=== PATIENT | male | born 1955 | race Caucasian/White ===

== ENCOUNTER 2025-06-02 00:22 | Day surgery (SDC) | payer MEDICARE, SELFPAY ==
[2025-05-26 09:56] VITALS: BMI 33.9
--- NOTE | 2025-05-26 10:09 | PC.NURSE ---
Report to the Outpatient Waiting Room, entrance under the green pavilion located off [facility], at time _10:00am on date __06/02/25 . Planned Procedure Time: __12:00pm .? Time changes happen often and if your time is changed the preop area will call you the afternoon before. - You and your visitor will be asked to self-screen and do not enter if you have any COVID symptoms. Please call surgeon if you need to reschedule. - A mask is optional within the hospital at this time. Patients may have clear liquids (water, carbonated beverages, clear teas, apple juice) until 3 hours prior to surgery with a maximum of 20 ounces. - No food from midnight until time of surgery and no smoking, or chewing tobacco (or any form of nicotine). No chewing gum, candy or mints. (09:00am) Take only the following medications with a SIP of water on the morning of surgery: ____Metoprolol and Amlodipine DO NOT STOP ANY OF YOUR OTHER PRESCRIPTION MEDICATIONS PRIOR TO SURGERY EXCEPT THE FOLLOWING Hold all vitamins and supplements for 3 days per anesthesiologist. Date of last dose is 05/29/25 Medications to discontinue per physician NONE Date to take last dose NONE Please no make-up, nail serbian, hairspray, perfume, deodorant, or body powder the day of surgery.? No jewelry (including any body piercings) or valuables the day of surgery, leave them at home.? Please take a shower or bath the night before, or the morning of, surgery with an antibacterial soap.? Wear comfortable, loose fitting clothing.? - Jewelry must be removed prior to entering the operating room.? Rings and piercings that are not removed may be cut off. - The hospital will not accept responsibility for valuables.? - Please leave all valuables, including medications, at home the day of surgery. If you are going home after surgery, a licensed driver material handler must drive you home.? - NO public transportation without another adult if you receive anesthesia. - We recommend that an adult stay with you for 24 hours following discharge. - We also recommend that you do not drive, make important decision, drink alcoholic beverages, or take any drugs that were not prescribed by your health care provider for at least 24 hours after your discharge time. Follow any additional instructions given to you from your surgeon. Telephone instructions given to ___Patient and asked if any additional questions and then verbalized understanding. Patient advised to call surgeon office or pre surgery nurse liaison [phone] if any additional questions.
[2025-06-02] VITALS (9 sets, daily range): BP systolic 90–142; BP diastolic 53–86; PULSE 75–89; RESP 14–23; TEMP 36.2–36.6; O2SAT 94–100
--- NOTE | ~2025-06-02 | XR_ITS ---
EXAMINATION: XR surgery orthopedic DATE: 06/02/2025 13:53 INDICATION: Right foot surgery TECHNIQUE: Single dorsal plantar fluoroscopic image of the right forefoot was obtained during procedure performed by Dr. Mccullough. Radiologist was not present for the imaging or procedure. The amount of fluoroscopy time used during this procedure was 0.1 minutes. Total DAP was 0.4065 cGycm^2. COMPARISON: None. FINDINGS: Changes consistent with a right bunionectomy with osteotomy at medial head of the right first metatarsal with a few small foci of lucent likely postoperative gas. Suggestion of an additional osteotomy at the medial base of the first proximal phalanx. Additional osteotomy along the head of the second proximal phalanx and base of the second middle phalanx with additional lucent soft tissue gas at the operative bed. There is a fixation pin which projects across the heads of the second-fifth metatarsals. IMPRESSION: 1. Fluoroscopy utilized during orthopedic procedure at the right forefoot. See procedure note for further detail. Reviewed, dictated and finalized at location A.
--- NOTE | ~2025-06-02 | XR_ITS ---
EXAMINATION: XR foot RT 2V DATE: 06/02/2025 15:22 INDICATION: Right foot surgery TECHNIQUE: 2 images of the right foot were obtained COMPARISON: None. FINDINGS: Orthopedic screw in the head of the second metatarsal which appears to be transfixing a fracture without radiographic evidence for loosening of the hardware. The distal third of the proximal phalanx of the second toe is absent. Bony irregularity of the distal aspect of the proximal phalanx of the second toe. Small plantar calcaneal spur. Soft tissue swelling about the right foot. IMPRESSION: 1. Orthopedic screw in the head of the second metatarsal which appears to be transfixing a fracture without radiographic evidence for loosening of the hardware. 2.The distal third of the proximal phalanx of the second toe is absent. Bony irregularity of the distal aspect of the proximal phalanx of the second toe. The findings may be secondary to recent surgery, however, osteomyelitis is possible. If concern for osteomyelitis, consider an MRI with and without contrast for further assessment. 3. Soft tissue swelling about the right foot. Reviewed, dictated and finalized at location Q. IMPRESSION: 1. Orthopedic screw in the head of the second metatarsal which appears to be tr ansfixing a fracture without radiographic evidence for loosening of the hardwar e. 2.The distal third of the proximal phalanx of the second toe is absent. Bony ir regularity of the distal aspect of the proximal phalanx of the second toe. The findings may be secondary to recent surgery, however, osteomyelitis is possible . If concern for osteomyelitis, consider an MRI with and without contrast for f urther assessment. 3. Soft tissue swelling about the right foot.
--- OUTSIDE RECORDS SUMMARY | 2025-06-02 00:25 | XMS_ITS | Encounter Summary ---
Author Organization [facility] Address [address] [place] [address] Phone Care Team Providers Care Product Design Engineer Name Role Phone Cesar Ayala MD Primary Care Provider [phone] Zhang Rock MD Unavailable [phone] Encounter Details Date Type Department Care Team (Latest Contact Info) Description 02/26/2023 Orders Only [facility] Scanning, Provider Social History Tobacco Use Types Packs/Day Years Used Date Smoking Tobacco: Never Smokeless Tobacco: Never AUDIT-C Answer Date Recorded Q1: How often do you have a drink containing alc ohol? Monthly or less 07/20/2021 Q2: How many drinks containi ng alcohol do you have on a typical day when you are drinking? 1 or 2 07/20/2021 Frequency of Binge Drinking Not on file 06/23 PHQ-2 Answer Date Recorded PHQ-2 Total Score 1 02/13/2022 Sex and Gender Information Value Date Recorded Sex Assigned at Not on file Legal Sex Male 1:38 PM METAL SLITTER Gender Identity Male 09/25/2021 1:41 PM METAL SLITTER Sexual Orientation Straight 09/25/2021 1: 41 PM METAL SLITTER documented as of this encounter Plan of Treatment Not on file documented as of this encounter Procedures Procedure Name Priority Date/Time Associated Diagnosis Comments SCAN - LABS 02/26/2023 documented in this encounter Results * SCAN - LABS (02/26/2023) us Provider Scanning Final Result documented in this encounter Visit Diagnoses Not on filedocumented in this encounter Care Teams Product Design Engineer Relationship Specialty Start Date End Date Cesar Ayala MD [address] [facility] [address] [place] [address] PCP - General 11/12/16 Zhang Rock MD [address] [place] [address] Consulting Physician Rheumatology 10/30/21 documented as of this encounter
--- OUTSIDE RECORDS SUMMARY | 2025-06-02 00:25 | XMS_ITS | Clinical Summary ---
Author Organization [facility] Address [address] [place] [address] Care Team Providers Care Insulation Machine Operator Name Role Phone Cesar Ayala MD Primary Care Provider [phone] Allergies Active Allergy Reactions Criticality Noted Date Comments Ibuprofen Other (see comment) 05/12/2019 cramps Medications hydrocodone-ac etaminophen (NORCO) 5-325 MG tablet Take 1-2 tablets by mouth every 6 (six) hours as needed for Pain. 16 tablet 9 Active acetaminophen (TYLENOL) 500 MG tablet every 8 (eight) hours. Active baclofen 10 MG tablet Take 10 mg by mouth 3 (three) times daily as needed. 1 Active vitamin B-12 (CYANOCOBALAMI N) 1000 mcg tablet Take 1,000 mcg by mouth. Active dexlansoprazol e (DEXILANT) 60 MG capsule 4 Active Krill Oil 300 MG Cap Active latanoprost 0.005 % ophthalmic solution 3 Active lisinopril 10 MG tablet Take 1 tablet by mouth daily. 3 Active losartan 25 MG tablet losartan 25 mg tablet TAKE 1 TABLET BY MOUTH EVERY DAY 0 Active meloxicam 15 MG tablet TAKE 1 TABLET BY MOUTH EVERY DAY WITH MEALS 1 Active metoprolol succinate ER 100 MG 24 hr tablet metoprolol succinate ER 100 mg tablet,extended release 24 hr TAKE 1 TABLET BY MOUTH EVERY DAY IN THE MORNING Active nitroglycerin 0.4 MG SL tablet nitroglycerin 0.4 mg sublingual tablet Active [place]-3 Fatty Acids (FISH OIL PEARLS) 300 MG Cap TAKE DIRECTED. A ctive traMADol 50 MG tablet tramadol 50 mg tablet Active Immunizations Immunization Administration Dates Next Due PFIZER COVID-19 (ORIGINAL FO RMULATION, PURPLE CAP) mRNA, LNP-S, PF, 30 MCG/0.3 ML DOSE 11/20/2020,10/30/2020 Social History Tobacco Use Types Packs/Day Years Used Date Smoking Tobacco: Never Smokeless Tobacco: Never Alcohol Use Standard Drinks/Week Comments Yes 0 (1 standard drink = 0.6 oz pur e alcohol) socially AUDIT-C Answer Date Recorded Frequency of Alcohol Consumption Never 05/12/2019 Average Number of Drinks Not on file 019 Frequency of Binge Drinking Not on file 04/23 Sex and Gender Information Value Date Recorded Sex Assigned at Not on file Legal Sex Male 5:46 PM CDT Gender Identity Not on file Sexual Orientation Not on file Last Filed Vital Signs Vital Sign Reading Time Taken Comments Blood Pressure 148/85 12/21/2020 10:21 AM CDT Pulse 75 12/21/2020 10:21 AM CDT Temperature 36.3 C (97.3 F) 12/21/2020 10:21 AM CDT Respiratory Rate 18 12/21/2020 10:21 AM CDT Oxygen Saturation 97% 12/21/2020 10:21 AM CDT Inhaled Oxygen Concentration - - Weight 111.1 kg (245 lb) 12/21/2020 10:21 AM CDT Height 182.9 cm (6') 12/21/2020 10:21 AM CDT Body Mass Index 33.23 12/21/2020 10:21 AM CDT Plan of Treatment Health Maintenance Due Date Last Done Comments Colorectal Cancer Screening Colonoscopy (10 Years) 1955 Hepatitis C 1973 Zoster Vaccines (1 of 2) 2005 Pneumococcal Vaccine: 50+ Years (2 of 2 - PCV) 07/06/2016 07/06/2015 Annual Medicare Wellness Visit 2020 COVID-19 Vaccine (3 - season) 2025 11/20/2020, 10/30/2020 DTaP, Tdap and Td Vaccines (5 - Td or Tdap) 11/20/2028 11/20/2018, 04/09/2018, 12/22/2015, Additional history exists RSV Immunization or 60+ Years (1 - 1-dose 75+ series) 2030 Meningococcal B Vaccine Aged Out No l onger eligible based on patient's age to complete this topic Meningococcal Vaccine Aged Out No cele starr eligible based on patient's age to complete this topic RSV Immunizations Under 20 Months Aged Out No longer eligible based on patient's age to complete this topic Insurance GENERIC - COMMERCIAL MEDICARE [facility] Care Teams Insulation Machine Operator Relationship Specialty Start Date End Date Cesar Ayala MD PCP - General INTERNAL MEDICINE 03/16/18
--- OUTSIDE RECORDS SUMMARY | 2025-06-02 00:25 | XMS_ITS | Clinical Summary ---
Author Organization [facility] Care Team Providers Care Clock Mechanic Name Role Phone Unavailable Primary Care Provider Unavailabl e Social History Tobacco Use Types Packs/Day Years Used Date Smoking Tobacco: Never Assessed Sex and Gender Information Value Date Recorded Sex Assigned at Not on file Legal Sex Male 7:54 AM SOA INTEGRATION ARCHITECT Gender Identity Not on file Sexual Orientation Not on file Plan of Treatment Health Maintenance Due Date Last Done Comments Hepatitis C Virus (HCV) Screening 1955 Cologuard 2000 Colonoscopy 2000 Colorectal Cancer Screening 2000 Immunochemical Fecal Occult Blood 2000 Zoster Immunization (1 of 2) 2005 Pneumococcal Immunization (50+ years) (2 of 2 - PCV20 or PCV21) 04/02/2022 04/02/2021 SARS-COV-2 Immunization ( - season) 2024 08/28/2021, 11/20/2020, 10/30/2020 Influenza Immunization (#1) 2025 092 , 07/17/2020, 07/20/2016, Additional history exists Respiratory Syncytial Virus (RSV) Immunization (Adult) (1 - 1-dose 75+ series) 2030 DTaP/Tdap/Td Immunization Discontinued 11/20/2018 TdaP Immunization Completed 11/20/2018 Hepatitis B Immunization Aged Out No longer eligible based on patient's age to complete this topic Human Papillomavirus (HPV) Immunization Aged Out No longer eligible based on patient's age to complete this topic Meningococcal Immunization (ACWY) Aged Out No longer eligible based on patient's age to complete this topic Rotavirus Immunization Aged Out No lo nger eligible based on patient's age to complete this topic
--- OUTSIDE RECORDS SUMMARY | 2025-06-02 00:25 | XMS_ITS | Encounter Summary ---
Author Organization [facility] Address [address] [place] [address] Phone Care Team Providers Care Organizational Consultant Name Role Phone Cesar Ayala MD Primary Care Provider [phone] Zhang oRck MD Unavailable [phone] Encounter Details Date Type Department Care Team (Late st Contact Info) Description 05/26/2025 Telephone [facility] Medicine Cardiology [address] [facility] [address] 8th [place] [address] [place] [address] Viraj Mathew MD [address] [facility] [address] [place] [address] Social History Tobacco Use Types Packs/Day Years Used Date Smoking Tobacco: Never Smokeless Tobacco: Never AUDIT-C Answer Date Recorded Q1: How often do you have a drink containing alc ohol? Monthly or less 03/16/2025 Q2: How many drinks containi ng alcohol do you have on a typical day when you are drinking? 1 or 2 03/16/2025 Q3: How often do you have si x or more drinks on one occasion? Never 03/16/2025 PHQ-2 Answer Date Recorded PHQ-2 Total Score 1 02/13/2022 Personal Safety Answer Date Recorded Have you ever been in or are you currently in a harmful physical or emotional relationship or is someone making you feel afraid or unsafe? Denies 03/16/2025 Sex and Gender Information Value Date Recorded Sex Assigned at Not on file Legal Sex Male 1:38 PM APPLICATIONS SPECIALIST Gender Identity Male 09/25/2021 1:41 PM APPLICATIONS SPECIALIST Sexual Orientation Straight 09/25/2021 1: 41 PM APPLICATIONS SPECIALIST documented as of this encounter Miscellaneous Notes * Telephone Encounter - Ibarra Carissa - 05/26/2025 1:00 PM CDT EKG has been faxed * Telephone Encounter - Rosalee Guillen - 05/26/2025 12:53 PM CDT Please fax EKG to [phone]. * Telephone Encounter - Carissa Ibarra - 05/26/2025 10:32 AM CDT Notes and EKG has been faxed to [facility] at [phone] * Telephone Encounter - Rosalee Guillen - 05/26/2025 9:46 AM CDT [facility] called requesting office note and EKG to be faxed to [phone]. documented in this encounter Plan of Treatment Not on file documented as of this encounter Visit Diagnoses Not on filedocumented in this encounter Care Teams Organizational Consultant Relationship Specialty Start Date End Date Cesar Ayala MD [address] [facility] [address] [place] [address] PCP - General 11/12/16 Zhang Rock MD [address] [place] [address] Consulting Physician Rheumatology 10/30/21 documented as of this encounter
--- OUTSIDE RECORDS SUMMARY | 2025-06-02 00:25 | XMS_ITS | Encounter Summary ---
Author Organization [facility] Address [address] [facility] [address] [place] [address] Phone Care Team Providers Care Boiler Tender Name Role Phone Cesar Ayala MD Primary Care Provider [phone] Zhang Rock MD Unavailable [phone] Encounter Details Date Type Department Care Team (Late st Contact Info) Description 05/06/2025 Results Follow-Up [facility] ([facility]) [facility] Medicine Urology [address] [facility] Advanced Medicine 11th [place] [address] [place] [address] Compa Paniagua, TISHA [address] [facility] [place] [address] Total testosterone Social History Tobacco Use Types Packs/Day Years [...] on file Legal Sex Male 1:38 PM MATERIALS SUPERVISOR Gender Identity Male 09/25/2021 1:41 PM MATERIALS SUPERVISOR Sexual Orientation Straight 09/25/2021 1: 41 PM MATERIALS SUPERVISOR documented as of this encounter Plan of Treatment Not on file documented as of this encounter Visit Diagnoses Not on filedocumented in this encounter Care Teams Boiler Tender Relationship Specialty Start Date End Date Cesar Ayala MD [address] [facility] [address] [place] [address] PCP - General 11/12/16 Zhang Rock MD [address] [place] [address] Consulting Physician Rheumatology 10/30/21 documented as of this encounter
--- OUTSIDE RECORDS SUMMARY | 2025-06-02 00:25 | XMS_ITS | Encounter Summary ---
Author Organization [facility] Address [address] [place] [address] Care Team Providers Care Proof Operator Name Role Phone Cesar Ayala MD Primary Care Provider [phone] Zhang Rock MD Unavailable [phone] Encounter Details Date Type Department Care Team (Late st Contact Info) Description 11/06/2021 Documentation [facility] OP Physical Therapy [address] [place] [address] Osbaldo Agustin, PT Social History Tobacco Use Types Packs/Day Years [...] PHQ-2 Answer Date Recorded PHQ-2 Total Score (If total score is 3 or more points, staff should administer the PHQ-9) 2 10/17/2021 Sex and Gender Information Value Date Recorded Sex Assigned at Not on file Legal Sex Male 1:38 PM FOSTER CARE CASE MANAGER Gender Identity Male 09/25/2021 1:41 PM FOSTER CARE CASE MANAGER Sexual Orientation Straight 09/25/2021 1: 41 PM FOSTER CARE CASE MANAGER documented as of this encounter Plan of Treatment Not on file documented as of this encounter Visit Diagnoses Not on filedocumented in this encounter Care Teams Proof Operator Relationship Specialty Start Date End Date Cesar Ayala MD [address] [facility] [address] [place] [address] PCP - General 11/12/16 Zhang Rock MD [address] [place] [address] Consulting Physician Rheumatology 10/30/21 documented as of this encounter
--- OUTSIDE RECORDS SUMMARY | 2025-06-02 00:25 | XMS_ITS | Encounter Summary ---
Author Organization [facility] Address [address] [place] [address] Phone Care Team Providers Care Housing Project Manager Name Role Phone Cesar Ayala MD Primary Care Provider [phone] Zhang Rock MD Unavailable [phone] Encounter Details Date Type Department Care Team (Late st Contact Info) Description 05/02/[address] [facility] Medicine Cardiology [address] [facility] [address] [place] [address] Viraj Mathew MD [address] [facility] [address] [place] [address] Social History Tobacco Use Types Packs/Day Years [...] on file Legal Sex Male 1:38 PM REGISTER CLERK Gender Identity Male 09/25/2021 1:41 PM REGISTER CLERK Sexual Orientation Straight 09/25/2021 1: 41 PM REGISTER CLERK documented as of this encounter Plan of Treatment Not on file documented as of this encounter Visit Diagnoses Not on filedocumented in this encounter Care Teams Housing Project Manager Relationship Specialty Start Date End Date Cesar Ayala MD [address] [facility] [address] [place] [address] PCP - General 11/12/16 Zhang Rock MD [address] [place] [address] Consulting Physician Rheumatology 10/30/21 documented as of this encounter
--- OUTSIDE RECORDS SUMMARY | 2025-06-02 00:25 | XMS_ITS | Encounter Summary ---
Author Organization [facility] Address [address] [place] [address] Care Team Providers Care Assistant Merchandiser Name Role Phone Cesar Ayala MD Primary Care Provider [phone] Nell Ge MD Unavailable Encounter Details Date Type Department Care Team (Late st Contact Info) Description 04/09/2018 Ophth Exam [facility] [address] [place] [address] Janeen Gonzalez MD [address] [place] [address] Social History Tobacco Use Types Packs/Day Years Used Date Smoking Tobacco: Never Smokeless Tobacco: Never Alcohol Use Standard Drinks/Week Comments Yes 0 (1 standard drink = 0.6 oz pur e alcohol) occasionally Sex and Gender Information Value Date Recorded Sex Assigned at Not on file Legal Sex Male 6:03 PM SPRING LAYER Gender Identity Not on file Sexual Orientation Not on file documented as of this encounter Plan of Treatment Not on file documented as of this encounter Visit Diagnoses Not on filedocumented in this encounter Care Teams Assistant Merchandiser Relationship Specialty Start Date End Date Cesar Ayala MD [address] [facility] [address] [place] [address] PCP - General Internal Medicine 04/09/18 Nell Ge MD [address] [facility] [address] [place] [address] Ophthalmology 04/26/19 documented as of this encounter
--- OUTSIDE RECORDS SUMMARY | 2025-06-02 00:25 | XMS_ITS | Clinical Summary ---
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 Large plantar calcaneal spur. US right hand/wrist (11/21/21): Moderate effusions and power doppler with erosive changes on examination. Marked synovial thickening in the wrist and 2nd PIP joint. Moderate synovial thickening in the 3rd MCP and 3rd PIP joints. Erosive changes seen in the lunate. Grade 2 effusion and grade 2 power doppler in the wrist. Grade 1 effusion and grade 2 power doppler in the radial/scaphoid joint. Grade 2 power doppler in the scapholunate joint and ulnar styloid. Grade 2 effusion in the 2nd and 3rd PIP joints. Grade 1 power doppler in the 2nd MCP joint. US right foot/ankle (07/21/24): 1) Tibial talar joint: Grade 1 effusion and grade 1 power doppler. 2) Talonavicular joint: Grade 1 effusion. 3) 1st MTP joint: Marked spurring. 4) 2nd MTP joint: Grade 2 effusion and grade 1 power doppler. 5) Dorsal 2nd PIP joint: Grade 1 power doppler with moderate spurring. 6) Volar 2nd PIP joint: Grade 1 power doppler. 7) Dorsal and Volar 2nd DIP joint was without effusion, power doppler, or erosive changes. 8) 5th MTP joint: Small cortical defect in the metatarsal head which may represent erosive changes. 9) An enlarged plantar fascia at 0.61 cm is identified. Assessment & Plan (04/18/2025 12:51 PM CDT): High cdai. Increased joint pain since delaying Remicade infusions for foot surgery. Surgery on 02/21 was postponed and waiting to be rescheduled. -Due to burden of disease, will administer kenalog 100 mg IM injection, in office, today. -Holding Remicade 5mg/kg IV until surgery and then can resume 2 weeks post-op. -Continue MTX 25mg weekly (split dosing) and folic acid 1mg daily. -Continue Leflunomide 20mg daily. -Recent labs reviewed with patient. -Follow up in 3 months. Sooner if needed. Assessment & Plan (01/19/2025 9:18 AM CDT): Low cdai. Significant improvement of pain with IM kenalog injection on 08/16/24. US R foot/ankle showed increased inflammation including where he is c/o pain in the 2nd toe so we stopped Rituxan and switched to Remicade which he started on 09/30/24 but is currently on hold until foot surgery on 02/21. -Holding Remicade 5mg/kg IV until surgery on 02/21 then can resume 2 weeks post- op. -Continue MTX 25mg weekly (split dosing) and folic acid 1mg daily. -Continue Leflunomide 20mg daily. -Routine labs today. -Follow up in 3-4 months. Sooner if needed. Assessment & Plan (10/13/2024 9:06 AM DROP HAMMER OPERATOR HELPER): Moderate cdai. Significant improvement of pain with IM kenalog injection on 08/16/24. US R foot/ankle showed increased inflammation including where he is c/o pain in the 2nd toe so we stopped Rituxan and switched to Remicade which he started on 09/30/24. Denies any s/e. -Continue Remicade 5mg/kg IV at weeks 0, 2, 6 then every 8 weeks thereafter and give this more time to take full effect. -Continue MTX 25mg weekly (split dosing) and folic acid 1mg daily. -Continue Leflunomide 20mg daily. -Routine labs today. -Follow up in 3 months. Sooner if needed. Assessment & Plan (08/16/2024 10:22 AM DROP HAMMER OPERATOR HELPER): High cdai. Increased pain in the hands and right foot. Last Rituxan series given on 05/26 and 06/09 without much relief. US R foot/ankle showed increased inflammation including where he is c/o pain in the 2nd toe. -Due to burden of disease, will administer kenalog 100 mg IM injection, in office, today. -Continue MTX 25mg weekly (split dosing) and folic acid 1mg daily. -Stop Rituxan -Start approval of Remicade 5mg/kg IV at weeks 0, 2, 6 then every 8 weeks thereafter. -Continue Leflunomide 20mg daily. -Routine labs today. -Follow up in 2 months. Sooner if needed. Assessment & Plan (07/12/2024 9:35 AM CDT): Moderate cdai. Increased pain in the hands and right foot. Last Rituxan series given on 05/26 and 06/09 without much relief. -Get US R foot/ankle to better evaluate for inflammatory activity. -Continue MTX 25mg weekly (split dosing) and folic acid 1mg daily. -Continue Rituximab IV q4 months. -Start Leflunomide 20mg daily. Discussed potential side effects including but not limited to increased infection, diarrhea, blood count abnormalities, and/or rash. -Should he note s/e to LEF or no significant relief after 2-3 months on this medication, then consider changing biologics next (TNFi such as Rituximab vs Cimzia). -Routine labs today. -Follow up in 4 weeks. Sooner if needed. Assessment & Plan (05/31/2024 11:23 AM CDT): Moderate cdai. Increased pain along with swelling but just had last Rixuan on 05/26 and due for next on 06/09. Notes infusions are wearing off after 3 months but unable to increase frequency as we are already dosing Rituxan every 4 months. Increase MTX 25mg weekly (split dosing). Continue folic acid 1mg daily. Continue Rituximab IV q4 months. Should increasing MTX provide no relief, then consider addition of LEF next. Routine labs today. Follow up in 4 weeks. Sooner if needed. Seen with Dr. Rock. Assessment & Plan (02/20/2024 2:01 PM CDT): Low cdai. Improvement of peripheral joint complaints since increasing frequency of Rituxan to every 4 months. Continue Rituximab IV q4 months, MTX 20mg weekly, and folic acid 1mg daily. Routine labs today. Follow up in 3-4 months. Sooner if needed. Assessment & Plan (11/21/2023 10:16 AM DROP HAMMER OPERATOR HELPER): Low cdai. Increased frequency of Rituximab to every 4 months with overall improvement of joint complaints. Continue Rituximab IV q4 months, MTX 20mg weekly, and folic acid 1mg daily. Routine labs today. Follow up in 3-4 months. Sooner if needed. Assessment & Plan (08/22/2023 12:00 PM DROP HAMMER OPERATOR HELPER): Moderate cdai. Increased synovitis in the MCP joints lately. Started Rituximab 04/21 and 05/05/23 with significant improvement of synovitis but still c/o pain in the hands and now MTPJ. Will repeat Rituximab sooner. Continue Rituximab IV q4 months and give this more time to take effect. Continue MTX 20mg weekly and folic acid 1mg daily. Routine labs today. Follow up in 3 months. Sooner if needed. Seen with Dr. Rock. Assessment & Plan (05/23/2023 3:01 PM CDT): Moderate cdai. High pain score due to right shoulder pain. Started Rituximab 04/21 and 8/14/23 with significant improvement of synovitis but still c/o pain in the hands and now MTPJ. Continue Rituximab IV q6 months and give this more time to take effect. Continue MTX 20mg weekly and folic acid 1mg daily. Routine labs today. Follow up in 3 months. Sooner if needed. Seen with Dr. Rock. Assessment & Plan (03/10/2023 11:57 AM CDT): Moderate cdai. Previously was noticing significant improvement of daily pain level at rest with MTX but the past several months had been c/o worsening pain in the bilateral elbows and hands so started simponi aria IV 09/04/22 but this did not provide much relief. Started Orencia IV which caused intolerable s/e and did not help joints. Stop Orencia IV due to s/e. Will start approval of Rituximab. Patient advised of the side effects of the medication, including but not limited to increase risk of infection, rash, infusion site reaction, as well as PML. Patient provided an informational handout. Continue MTX 20mg weekly and folic acid 1mg daily. Routine labs today. Follow up in 2-3 months. Sooner if needed. Seen with Dr. Rock. Assessment & Plan (01/20/2023 10:14 AM CDT): Moderate cdai. Previously was noticing significant improvement of daily pain level at rest with MTX but the past several months has been c/o worsening pain in the bilateral elbows and hands so started simponi aria IV 09/04/22 but this has not provided much relief. Discussed changing biologics and he is agreeable to trying Orencia IV at this time. Stop simponi aria and start Orencia IV. Patient advised of the side effects of the medication, including but not limited to increased risk of infection, injection site reaction, and/or new rash. Continue MTX 20mg weekly and folic acid 1mg daily. Routine labs today. Follow up in 2-3 months. Sooner if needed. Assessment & Plan (10/14/2022 10:39 AM DROP HAMMER OPERATOR HELPER): Moderate cdai. Previously was noticing significant improvement of daily pain level at rest with MTX but the past several months has been c/o worsening pain in the bilateral elbows and hands so started simponi aria IV 09/04/22 but this has not provided much relief yet. Continue simponi aria 2mg/kg IV [id number] and give this more time to take effect. Continue MTX 20mg weekly and folic acid 1mg daily. If no significant relief by next visit, consider changing biologics next. Routine labs today. Follow up in 3 months. Sooner if needed. Seen with Dr. Rock. Due to burden of disease, will administer kenalog 100 mg IM injection, in office, today. Assessment & Plan (08/12/2022 9:51 AM DROP HAMMER OPERATOR HELPER): Moderate cdai. Previously was noticing significant improvement of daily pain level at rest with MTX but the past 2 months has been c/o worsening pain mainly in the R wrist. Exam reveals improvement of peripheral synovitis and joint tenderness from initial evaluation but continues to have synovitis and tenderness in the bilateral wrists so discussed addition of simponi aria which he is agreeable to at this time. Will start simponi aria 2mg/kg IV at weeks 0, 4, then every 8 weeks thereafter. Patient advised of the side effects of the medication, including but not limited to increase risk of infection, rash, injection site reaction. Continue MTX 20mg weekly and folic acid 1mg daily. Recent labs reviewed. Check TSPOT today. Follow up in 2 months. Sooner if needed. Seen with Dr. Rock. Assessment & Plan (05/14/2022 1:34 PM CDT): Moderate cdai. Tolerating increased MTX with significant improvement of daily pain level at rest. Reports recent flare after missing MTX dose. Exam reveals improvement of peripheral synovitis and joint tenderness as well. C/o pain in hands/wrists with use suggesting pain is from DJD and he feels MTX is controlling his RA well so he defers additional immunosuppressive medications at this time. Should he have recurrence of pain at rest, AM stiffness, or obvious joint synovitis, could consider addition of a biologic such as simponi aria next. Will continue MTX 20mg weekly and folic acid 1mg daily. Routine labs today. Follow up in 3-4 months. Sooner if needed. Assessment & Plan (02/12/2022 4:00 PM CDT): Low cdai. Tolerating increased MTX and notes significant improvement of daily pain level at rest. Exam reveals improvement of peripheral synovitis and joint tenderness. C/o pain in hands/wrists with use suggesting pain is from DJD so will defer additional immunosuppressive medications at this time. Should he have recurrence of pain at rest, AM stiffness, or obvious joint synovitis, could consider addition of a biologic such as simponi aria next. Will continue MTX 20mg weekly and folic acid 1mg daily. Routine labs today. Follow up in 3 months. Sooner if needed. Assessment & Plan (01/15/2022 3:57 PM CDT): Moderate cdai. Tolerating MTX and notes improvement of daily pain level. Exam reveals some improvement of peripheral synovitis. Will increase MTX 20mg weekly. Continue folic acid 1mg daily. Recent labs reviewed and will likely repeat labs again next visit. Follow up in 1 month. Sooner if needed. Seen with Dr. Rock. Assessment & Plan (12/04/2021 3:06 PM CDT): US right hand/wrist (11/21/21): Moderate effusions and power doppler with erosive changes on examination. Marked synovial thickening in the wrist and 2nd PIP joint. Moderate synovial thickening in the 3rd MCP and 3rd PIP joints. Erosive changes seen in the lunate. Grade 2 effusion and grade 2 power doppler in the wrist. Grade 1 effusion and grade 2 power doppler in the radial/scaphoid joint. Grade 2 power doppler in the scapholunate joint and ulnar styloid. Grade 2 effusion in the 2nd and 3rd PIP joints. Grade 1 power doppler in the 2nd MCP joint. 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 XR also revealed b/l heel spurs and heterotopic ossification w/ small enthesophyte of the left foot. US findings reveal erosive changes in the right wrist as well an inflammatory findings in a few fingers. Today he continues to have significant synovitis and joint tenderness in the bilateral hands and wrists suggesting an inflammatory arthritis. Based on US findings, symptoms are most consistent with seronegative rheumatoid arthritis at this time. Questionable nail pitting R 2nd digit and achilles calcification is suspicious for a spondyloarthritis however initial treatment remains the same at this time. Will start MTX 12.5mg weekly and folic acid 1mg daily. Patient advised of the side effects of the medication, including but not limited to increased risk of infection, GI upset, increased LFTs, mouth sores, rash, diarrhea, and/or blood count abnormalities. Patient provided informational handouts about MTX and RA. Follow up in 1 month. Sooner if needed. Seen with Dr. Rock. Assessment & Plan (11/16/2021 11:33 AM DROP HAMMER OPERATOR HELPER): 66-year-old male presenting with PMHx of HTN, HLD, glaucoma, GERD, cataracts, CAD (7 stents), and lumbar DJD c/o onset R shoulder pain in 03/2021 following a pneumococcal injection. Since then, has had progression of bilateral hand pain (R>L) that wakes him at night and is unable to make a full fist bilaterally. Synovitis with tenderness noted on peripheral joint exam today. Previous XR shows extensive calcification of enthesophyte at left plantar fascia which may be suggestive of a spondyloarthritis. Questionable nail pitting suggests psoriatic arthritis. Symptoms and exam are suspicious for a spondyloarthritis, such as psoriatic arthritis, vs DJD. Will order appropriate serologies, radiographs, and a right hand/wrist US to further evaluate. Follow up in 2 weeks. Sooner if needed. Seen with Dr. Rock. Chronic bilateral low back pain with bilateral s ciatica 11/16/2021 Assessment & Plan (01/20/2023 10:16 AM CDT): Hx of chronic low back pain that radiates into the bilateral legs (L>R). Previous XR showed DJD of the lumbar, thoracic, and cervical spines. Has had epidural injections and nerve ablation in the past with some relief. Had MRI 01/2022 that showed multilevel degenerative changes. Seen by pain management in [place] who did LESI and trigger point injections which have provided some relief and saw surgeon for potential surgical options. Surgeon actually did SI joint injections which provided significant relief and had RFA with significant benefit. Assessment & Plan (10/14/2022 10:40 AM DROP HAMMER OPERATOR HELPER): Hx of chronic low back pain that radiates into the bilateral legs (L>R). Previous XR showed DJD of the lumbar, thoracic, and cervical spines. Has had epidural injections and nerve ablation in the past with some relief. Had MRI 01/2022 that showed multilevel degenerative changes. Seen by pain management in [place] who did LESI and trigger point injections which have provided some relief and saw surgeon for potential surgical options. Surgeon actually did SI joint injections which provided significant relief and had RFA with significant benefit. Assessment & Plan (08/12/2022 9:39 AM DROP HAMMER OPERATOR HELPER): Hx of chronic low back pain that radiates into the bilateral legs (L>R). Previous XR showed DJD of the lumbar, thoracic, and cervical spines. Has had epidural injections and nerve ablation in the past with some relief. Had MRI 01/2022 that showed multilevel degenerative changes. Seen by pain management in [place] who did LESI and trigger point injections which have provided some relief and saw surgeon for potential surgical options. Surgeon actually did SI joint injections which provided significant relief and recently had RFA with significant benefit. Assessment & Plan (05/14/2022 1:37 PM CDT): Hx of chronic low back pain that radiates into the bilateral legs (L>R). Previous XR showed DJD of the lumbar, thoracic, and cervical spines. Has had epidural injections and nerve ablation in the past with some relief. Had MRI 01/2022 that showed multilevel degenerative changes. Seen by pain management in [place] who did LESI and trigger point injections which have provided some relief and saw surgeon for potential surgical options. Surgeon actually did SI joint injections which provided significant relief and is to f/u about every 6 months for potential repeat injections. Assessment & Plan (02/12/2022 4:20 PM CDT): Hx of chronic low back pain that radiates into the bilateral legs (L>R). Previous XR showed DJD of the lumbar, thoracic, and cervical spines. Has had epidural injections and nerve ablation in the past with some relief. Had MRI 01/2022 that showed multilevel degenerative changes. Seen by pain management in [place] who did LESI and trigger point injections which have provided some relief and is going to see surgeon soon to discuss potential surgical options. Assessment & Plan (01/15/2022 3:59 PM CDT): Hx of chronic low back pain that radiates into the bilateral legs (L>R). Previous XR showed DJD of the lumbar, thoracic, and cervical spines. Has had epidural injections and nerve ablation in the past with some relief however has been 10 months since any procedures so is having increased pain. Current PM is on medical leave so will need to see a new provider. Getting MRI 01/21/22 and then is going to be seen by pain management in [place]. Will give flexeril 5mg TID prn until he can be seen by PM. Assessment & Plan (12/04/2021 3:09 PM CDT): Hx of chronic low back pain that radiates into the bilateral legs (L>R). Previous XR showed DJD of the lumbar, thoracic, and cervical spines. Has had epidural injections and nerve ablation in the past with some relief however has been 10 months since any procedures so is having increased pain. Current PM is on medical leave so will need to see a new provider. Currently in PT and then will be getting lumbar MRI so he can consult with a neurosurgeon. Assessment & Plan (11/16/2021 11:23 AM DROP HAMMER OPERATOR HELPER): Hx of chronic low back pain that radiates into the bilateral legs (L>R). Previous XR showed DJD of the lumbar, thoracic, and cervical spines. Has had epidural injections and nerve ablation in the past with some relief however has been 10 months since any procedures so is having increased pain. Current PM is on medical leave so will need to see a new provider. Currently in PT and then will be getting lumbar MRI so he can consult with a neurosurgeon. Status post primary angioplasty with coronary st ent 10/17/2021 Obesity (BMI 30.0-34.9) 11/08/2019 Essential hypertension 04/12/2018 Assessment & Plan (01/06/2025 10:24 AM CDT): Remains above goal. Has not started higher dose of losartan yet. Continue current regimen with amlodipine 10 mg daily and metoprolol XL 100 mg daily. 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 He will need repeat labs in 1 week after starting higher dose. Advised to keep a blood pressure diary returned us in 1-2 weeks after starting higher dose. Hyperlipidemia 02/12/2016 Assessment & Plan (01/06/2025 10:24 AM CDT): Continue Crestor 20 mg daily. Coronary arteriosclerosis in navajo artery 05/31 Assessment & Plan (01/06/2025 10:17 AM CDT): CAD s/p LAD and RCA stenting in 2015 and large 2nd diagonal stenting in 2020. Recent stress echo on 12/08/2024 that was negative for ischemia. Continues to have shortness of breath with exertion. Blood pressure continues to be poorly controlled. Continue amlodipine 10 mg daily, Aspirin 81 mg daily, metoprolol XL 100 mg daily and Crestor 20 mg daily. Will continue to work on BP optimization. See plan under GARNICA. Encounters Date Type Department Care Team Description 05/26/2025 Telephone [facility] [address] [place] [address] 8th [place] [address] [place] [address] Viraj Mathew MD 05/20/2025 6:05 AM CDT Lab [facility] [address] [place] [id number] 05/18/2025 10:34 AM CDT - 05/18/2025 11:59 PM CDT Hospital Encounter [facility] [place] [address] [place] [address] [place] [id number] Solitary pulmonary nodule Discharge Disposition: Discharge to home or self care 05/06/2025 6:45 AM CDT Lab [facility] [address] [place] [id number] 05/06/2025 6:30 AM CDT Lab [facility] [address] [place] [id number] Erectile dysfunction due to arterial insufficiency 05/06/2025 Results Follow-Up [facility]) - [facility] [address] [facility] 11th [place] [address] [place] [address] Compa Paniagua NP Total testosterone 05/04/2025 10:40 AM CDT Office Visit [facility] [address] [facility] 11th [place] [address] [place] [address] Compa Paniagua NP Urinary frequency (Primary Dx); Urgency of urination; Erectile dysfunction due to arterial insufficiency 05/02/2025 Telephone [facility] [address] [facility] 8th [place] [address] [place] [address] Viraj Mathew MD 05/02/2025 Telephone [facility] [address] 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 04/14/2025 Telephone [facility] [address] [facility] 8th [place] [address] [place] [address] Viraj Mathew MD Cardiac clearance 03/16/2025 10:50 AM CDT - 03/16/2025 12:15 PM CDT Surgery [facility] [address] [place] [phone] Quirino Lara MD LEFT HEART CATHETERIZATION WITH CORONARY ANGIOGRAPHY AND WITH OR WITHOUT LEFT VENTRICULOGRAM [id number] 03/16/2025 7:35 AM CDT - 03/16/2025 3:20 PM CDT Hospital [facility] [address] [phone] Quirino Lara MD Coronary arteriosclerosis in navajo artery; GARNICA (dyspnea on exertion); SOB (shortness of breath) Discharge Disposition: Discharge to home or self care 03/15/2025 Telephone [facility] [address] [facility] [address]th [place] [address] [place] [phone] Viraj Mathew MD from Last 3 Months Surgical History Surgery Date Site/Laterality Comments CARDIAC CATHETERIZATION EYE SURGERY 04/09/2018 Left Global fracture TOTAL KNEE ARTHROPLASTY 04/22/2010 - 05/22/2010 Right ACHILLES TENDON SURGERY Right CATARACT EXTRACTION 05/23/2009 - 06/21/2009 Right CATARACT EXTRACTION 04/22/2009 - 05/22/2009 Left VITRECTOMY 04/22/2015 - 05/22/2015 Left VITRECTOMY 07/23/2013 - 08/21/2013 Right LASIK 03/22/2017 - 04/21/2017 Right RETINAL DETACHMENT SURGERY 04/22/2018 - 05/22/201806/2018, 10/2018, 11/2018, 09/2019 PARTIAL KNEE ARTHROPLASTY 09/22/2008 - 10/22/2008 Left CORONARY ANGIOPLASTY WITH STENT PLACEMENT 07/20/2021 LAD x4 (12/2015); RAC x2 (01/2016) TRIGGER POINT INJECTION per pain management for back pain EPIDURAL STEROID INJECTION FLUORO GUIDED INJECTION SHOULDER RIGHT 08/04/2023 Right FLUORO GUIDED INJECTION SHOULDER RIGHT 01/14/2024 Right FLUORO GUIDED INJECTION SHOULDER RIGHT 04/16/2024 Right COLONOSCOPY UPPER GASTROINTESTINAL ENDOSCOPY CARDIAC CATHETERIZATION 03/16/2025 N/A Procedure: LEFT HEART CATHETERIZATION WITH CORONARY ANGIOGRAPHY AND WITH OR WITHOUT LEFT VENTRICULOGRAM [id number]; Surgeon: Quirino Lara MD; Location: [facility]; Service: Cardiovascular; Laterality: N/A; Medical History Medical History Date Comments Hypertension Coronary artery disease Hyperlipidemia Arthritis GERD (gastroesophageal reflux disease) Heart disease Orbital fracture HL (hearing loss) Tinnitus Family History Medical History Relation Name Comments Heart disease Brother Family history of cardiac disorder - (Added by TW Conv) Heart failure Brother valve Cancer Father Heart disease Mother Family history of cardiac disorder - (Added by TW Conv) Heart disease Sister Family history of cardiac disorder - (Added by TW Conv) Relation Name Status Comments Brother Father Mother Sister Social History Tobacco Use Types Packs/Day Years Used Date Smoking Tobacco: Never Smokeless Tobacco: Never Tobacco Cessation:Counseling Given: Not Answered AUDIT-C Answer Date Recorded Q1: How often [...] on file Legal Sex Male 1:38 PM DROP HAMMER OPERATOR HELPER Gender Identity Male 09/25/2021 1:41 PM DROP HAMMER OPERATOR HELPER Sexual Orientation Straight 09/25/2021 1: 41 PM DROP HAMMER OPERATOR HELPER Obstetrics History Last Filed Vital Signs Vital Sign Reading Time Taken Comments Blood Pressure 126/74 04/18/2025 11:15 AM CDT Pulse 90 04/18/2025 11:15 AM CDT Temperature 36.6 C (97.9 F) 03/16/2025 7:58 AM CDT Respiratory Rate 17 03/16/2025 2:30 PM CDT Oxygen Saturation 94% 04/18/2025 11:15 AM CDT Inhaled Oxygen Concentration - - Weight 115.2 kg (254 lb) 04/18/2025 11:15 AM CDT Height 182.9 cm (6') 04/18/2025 11:15 AM CDT Body Mass Index 34.45 04/18/2025 11:15 AM CDT Plan of Treatment Health Maintenance Due Date Last Done Comments Hepatitis B Screening 1973 Well Visit 65+ 2020 Depression Screening 02/13/2023 02/13/2022, 02/13/2022, 10/17/2021, Additional history exists Prostate Cancer Screening-PSA 04/16/2025 04/16/2023 Covid-19 Vaccine (2024-10 6 season) 2025 06/22/2021, 11/20/2020, 10/30/2020 Influenza Vaccine (#1) 2025 , 06/22/2021, 07/17/2020, Additional history exists Fall Risk Assessment 03/16/2026 03/16/2025 Pneumococcal vaccine 65+ (4 of 4 - PCV20 or PCV21) 06/06/2026 06/06/2021, 04/02/2021, 04/30/2016, Additional history exists Colon Cancer Screening-Colonoscopy 07/10/2027 07/10/2017 DTaP/Tdap/Td Vaccine (5 - Td or Tdap) 11/20/2028 11/20/2018, 04/09/2018, 04/30/2016, Additional history exists Colon Cancer Screening-CT Colonography Discontinued 07/10/2017 Colon Cancer Screening-DNA Stool Discontinued 07/10/20 17 Colon Cancer Screening-FIT Discontinued 07/10/2017 Colon Cancer Screening-Sigmoidoscopy Discontinued 07/10/2017 Hepatitis C Screening Completed 11/16/2021 Zoster Vaccine Completed 06/16/2023, 01/20, 06/06/2021, Additional history exists Medical Devices Implanted Type Area It Service Manager Device Identifier Shelf Expiration Date Model / Serial / Lot [employer] [id number] Angio-Seal Evolution 8fr .038in Guidewire Bypass Tube Suture - [id number] Implanted:Qty: 1 on 07/20/2021 by Jin Rodriguez MD PhD at [facility] Collagen Left: Femoral [employer] Jessa 05/22/2022 [id number] / / [id number] [employer] Jessa [id number] Synergy Xd Monorail 2.25mm 32mm 144cm Delivery System 1 Access - [id number] Implanted:Qty: 1 on 07/20/2021 by Jin Rodriguez MD PhD at [facility] Stent Left: Coronary [employer] Jessa 12/28/2022 [id number] / / [id number] Procedures Procedure Name Priority Date/Time Associated Diagnosis Comments EGFR Routine 05/20/2025 6:24 AM CDT COMPREHENSIVE METABOLIC PANEL Routine 05/20/2025 6:[address] CHEST WO CONTRAST Schedule Routine, Read Routine (OP Routine) 05/18/2025 10:42 AM CDT Solitary pulmonary nodule EGFR Routine 05/06/2025 6:47 AM CDT TOTAL TESTOSTERONE Routine 05/06/2025 6:47 AM CDT Erectile dysfunction due to arterial insufficiency COMPREHENSIVE METABOLIC PANEL Routine 05/06/2025 6:47 AM CDT MEASURE POST VOID RESIDUAL Routine 05/04/2025 10:29 AM CDT Urinary frequency Urgency of urination LEFT HEART CATHETERIZATION WITH CORONARY ANGIOGRAPHY AND WITH AND WITHOUT LEFT VENTRICULOGRAM Routine 03/16/2025 11:26 AM CDT Coronary arteriosclerosis in navajo artery GARNICA (dyspnea on exertion) SOB (shortness of breath) POCT ACTIVATED CLOTTING TIME, LOW RANGE Routine 03/16/2025 11:24 AM CDT CBC WITHOUT DIFFERENTIAL Routine 03/16/2025 11:08 AM CDT EGFR STAT 03/16/2025 8:40 AM CDT BASIC METABOLIC PANEL STAT 03/16/2025 8:40 AM CDT CBC WITHOUT DIFFERENTIAL STAT 03/16/2025 8:40 AM CDT ECG 12-LEAD Routine 03/16/2025 7:46 AM CDT PSA SCREEN Routine 04/16/2023 9:40 AM CDT Benign prostatic hyperplasia with lower urinary tract symptoms, symptom details unspecified HEPATITIS PANEL, ACUTE Routine 11/16/2021 11:36 AM 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 73 m2 Comment: Interpretive Data Reference Interval Normal >/= 90 mL/min/1.73m2 Mildly decreased* 60 - 89 mL/min/1.73m2 Mildly to moderately decreased 45 - 59 mL/min/1.73m2 Moderately to severely decreased 30 - 44 mL/min/1.73m2 Severely decreased 15 - 29 mL/min/1.73m2 Kidney Failure < 15 mL/min/1.73m2 *Relative to young adult level Estimated glomerular filtration rate is determined by the 2020 CKD-EPI equation recommended by the National Kidney Foundation (A Unifying Approach to GFR Estimation: Recommendations of the NKF-ASK Task Force on Reassessing the Inclusion of Race in Diagnosing Kidney Disease, JASN 2020). The CKD-EPI equation should not be used for patients with unstable renal function and has not been validated in children and those over 70. Current interpretive data was last reviewed 2021. Blood 05/20/2025 6:24 AM CDT 05/20/2025 6:29 AM CDT Cesar Ayala MD LAB BLOOD ORDERABLES Final Result [facility] [address] [facility] [place] [address] * (ABNORMAL) Comprehensive metabolic panel (05/20/2025 6:24 AM CDT) Sodium 141 135 - 145 mmol/L Potassium, pl 5.0(H) 3.3 - 4.9 mmol/L [facility] Chloride 107 97 - 110 mmol/L [facility] CO2 25 22 - 32 mmol/L [facility] Anion gap 9 2 - 15 mmol/L [facility] BUN 15 6 - 25 mg/dL [facility] Creatinine 0.96 0.80 - 1.30 mg/dL [facility] Glucose 103 70 - 199 mg/dL [facility] Comment: Interpretive Data Fasting glucose >/= 126 mg/dl is diagnostic for diabetes. Fasting is defined as no caloric intake for at least 8 hours. Fasting glucose between 100 mg/dl to 125 mg/dl is diagnostic of prediabetes. In a patient with classic symptoms of hyperglycemia or hyperglycemic crisis, a random glucose >/= 200 mg/dl is diagnostic for diabetes. In the absence of unequivocal hyperglycemia, results should be confirmed by repeat testing. The classification and Diagnosis of Diabetes Diabetes Care 202; 46: S19-S40. Current interpretive data was last revised 2022. Calcium 9.5 8.5 - 10.3 mg/dL [facility] Bilirubin, total 0.5 0.1 - 1.2 mg/dL [facility] Protein, pl 6.9 6.5 - 8.5 g/dL [facility] Albumin 3.9 3.5 - 5.0 g/dL [facility] Alk phos 82 40 - 130 Units/L [facility] ALT 41 7 - 55 Units/L [facility] AST 34 10 - 50 Units/L [facility] Blood 05/20/2025 6:24 AM CDT 05/20/2025 6:29 AM CDT us Cesar Ayala MD LAB BLOOD ORDERABLES Final Result Performing Organization Address City/State/[facility] Co de Phone Number [facility] [address] [facility] Department [place] [address] * CT Chest WO Contrast (05/18/2025 10:42 AM CDT) Anatomical Region Laterality Modality Body N/A Computed Tomogra phy 05/30/2025 8:48 AM CDT Narrative 05/30/2025 8:53 AM CDT EXAM DESCRIPTION: CT CHEST WO CONTRAST REASON FOR STUDY: solit pulm nodule Annual pulmonary nodule f/u. No complaints. TECHNIQUE: CT scan of the chest performed without intravenous contrast using helical scanning technique. Reconstructed coronal and sagittal MPR images reviewed. All images stored on PACS. Automated exposure control was used as a dose optimization technique for this examination. COMPARISON: 01/20/2025 FINDINGS: The sensitivity for detection of solid visceral lesions is diminished without the use of intravenous contrast. LUNGS: There is a stable 3 mm subpleural right upper lobe nodule (image 162). A 3 mm subpleural right middle lobe nodule (image 177) is unchanged. An 8 mm nodule in the right lower lobe (image 227) is stable. A 7.5 mm nodule more inferiorly in the right lower lobe (image 251) also appears unchanged. There are additional scattered pulmonary micronodules (<3 mm). PLEURA: No effusion. No pneumothorax. MEDIASTINUM/SHAWNEE: No identified masses or abnormal nodes. HEART: Heart size is normal with no pericardial effusion. CORONARY ARTERY CALCIFICATION: Present VASCULATURE: No thoracic aortic aneurysm. AXILLA: No adenopathy. CHEST WALL: No masses. No subcutaneous air. HARDWARE/LINES/TUBES: None. UPPER ABDOMEN: There is either a partially imaged left extrarenal pelvis or a partially imaged left renal cyst. MUSCULOSKELETAL: Flowing anterior vertebral body osteophytes in the thoracic spine are most consistent with diffuse idiopathic skeletal hyperostosis. OTHER: No other significant abnormality. IMPRESSION: 1. Stable pulmonary nodules. No new pulmonary nodules noted. THIS IS AN ELECTRONICALLY VERIFIED FINAL REPORT 05/30/2025 8:53 AM - Electronically signed by Doc Naranjo M.D. BS: TERRA Report ID: [id number] Reading Location: [place] [address] Procedure Note Doc Naranjo MD - 05/30/2025 EXAM DESCRIPTION: CT CHEST WO CONTRAST REASON FOR STUDY: solit pulm nodule Annual pulmonary nodule f/u. No complaints. TECHNIQUE: CT scan of the chest performed without intravenous contrastusing helical scanning technique. Reconstructed coronal and sagittal MPR images reviewed. All images stored on PACS. Automated exposure control was usedas a dose optimization technique for this examination. COMPARISON: 01/20/2025 FINDINGS: The sensitivity for detection of solid visceral lesions is diminished without the use of intravenous contrast. LUNGS: There is a stable 3 mm subpleural right upper lobe nodule (image 162). A 3 mm subpleural right middle lobe nodule (image 177) isunchanged. An 8 mm nodule in the right lower lobe (image 227) is stable. A 7.5 mmnodule more inferiorly in the right lower lobe (image 251) also appearsunchanged. There are additional scattered pulmonary micronodules (<3 mm). PLEURA: No effusion. No pneumothorax. MEDIASTINUM/SHAWNEE: No identified masses or abnormal nodes. HEART: Heart size is normal with no pericardial effusion. CORONARY ARTERY CALCIFICATION: Present VASCULATURE: No thoracic aortic aneurysm. AXILLA: No adenopathy. CHEST WALL: No masses. No subcutaneous air. HARDWARE/LINES/TUBES: None. UPPER ABDOMEN: There is either a partially imaged left extrarenal pelvisor a partially imaged left renal cyst. MUSCULOSKELETAL: Flowing anterior vertebral body osteophytes in thethoracic spine are most consistent with diffuse idiopathic skeletal hyperostosis. OTHER: No other significant abnormality. IMPRESSION: 1. Stable pulmonary nodules. No new pulmonary nodulesnoted. THIS IS AN ELECTRONICALLY VERIFIED FINAL REPORT 05/30/2025 8:53 AM - Electronically signed by Doc Naranjo M.D. BS: BS Report ID: [id number] Reading Location: [place] [address] Cesar Ayala MD IMG CT PROCEDURES Final Re sult * eGFR (05/06/2025 6:47 AM CDT) eGFR >90 >=60 mL/min/1. 73 m2 Comment: Interpretive Data Reference Interval Normal >/= 90 mL/min/1.73m2 Mildly decreased* 60 - 89 mL/min/1.73m2 Mildly to moderately decreased 45 - 59 mL/min/1.73m2 Moderately to severely decreased 30 - 44 mL/min/1.73m2 Severely decreased 15 - 29 mL/min/1.73m2 Kidney Failure < 15 mL/min/1.73m2 *Relative to young adult level Estimated glomerular filtration rate is determined by the 2020 CKD-EPI equation recommended by the National Kidney Foundation (A Unifying Approach to GFR Estimation: Recommendations of the NKF-ASK Task Force on Reassessing the Inclusion of Race in Diagnosing Kidney Disease, JASN 202). The CKD-EPI equation should not be used for patients with unstable renal function and has not been validated in children and those over 70. Current interpretive data was last reviewed 2021. Blood 05/06/2025 6:47 AM CDT 05/06/2025 7:21 AM CDT Larissa Mccullough DPM LAB BLOOD ORDERABLES Final Result Performing Organization Address City/[facility]/ZIP Co de Phone Number [address] [place] [address] * (ABNORMAL) Total testosterone (05/06/2025 6:47 AM CDT) Pathologist [facility] Testosterone 849.00(H) 193.00 - 740.00 ng/dL Blood 05/06/2025 6:47 AM CDT 05/06/2025 6:58 AM CDT Compa Hipolito Siva EDITORIAL MANAGER LAB BLOOD ORDERABLES F inal Result Performing Organization Address [facility] Co de Phone Number [address] [address] * Comprehensive metabolic panel (05/06/2025 6:47 AM CDT) [facility] Sodium 139 135 - 145 mmol/L Potassium, pl 4.4 3.3 - 4.9 mmol/L [facility] Chloride 105 97 - 110 mmol/L [facility] CO2 23 22 - 32 mmol/L [facility] Anion gap 11 2 - 15 mmol/L [facility] BUN 16 6 - 25 mg/dL [facility] Creatinine 0.89 0.80 - 1.30 mg/dL [facility] Glucose 103 70 - 199 mg/dL [facility] Comment: Interpretive Data Fasting glucose >/= 126 mg/dl is diagnostic for diabetes. Fasting is defined as no caloric intake for at least 8 hours. Fasting glucose between 100 mg/dl to 125 mg/dl is diagnostic of prediabetes. In a patient with classic symptoms of hyperglycemia or hyperglycemic crisis, a random glucose >/= 200 mg/dl is diagnostic for diabetes. In the absence of unequivocal hyperglycemia, results should be confirmed by repeat testing. The classification and Diagnosis of Diabetes Diabetes Care 2021; 46: S19-S40. Current interpretive data was last revised 2022. Calcium 9.0 8.5 - 10.3 mg/dL [facility] Bilirubin, total 0.6 0.1 - 1.2 mg/dL [facility] Protein, pl 7.1 6.5 - 8.5 g/dL [facility] Albumin 3.9 3.5 - 5.0 g/dL [facility] Alk phos 85 40 - 130 Units/L [facility] ALT 29 7 - 55 Units/L [facility] AST 28 10 - 50 Units/L [facility] Blood 05/06/2025 6:47 AM CDT 05/06/2025 6:58 AM CDT Larissa Mccullough DPM LAB BLOOD ORDERABLES Final Result [facility] [address] [facility] Department [place] [address] * Measure post void residual (05/04/2025 10:29 AM CDT) Narrative Bonny Espinoza CMA - 05/04/2025 10:29 AM CDT Measurement of Post Void Residual urine and/or bladder capacity PVR = 99 ml Compa Paniagua NP NURSING ASSESSMENTS Fi nal Result * LEFT HEART CATHETERIZATION WITH CORONARY ANGIOGRAPHY AND WITH AND WITHOUT LEFT VENTRICULOGRAM (03/16/2025 11:26 AM CDT) Anatomical Region Laterality Modality X-Ray Angiograph y Impressions 03/16/2025 12:37 PM CDT Nonobstructive coronary artery disease with patent stents Mildly elevated LVEDP THERAPEUTIC RECOMMENDATIONS: Continue aspirin 81 mg daily indefinitely. Right radial artery sheath was removed with TR band for hemostasis. Patient may sit up immediately with wrist precautions. Aggressive risk factor modification and medical therapy for secondary prevention of coronary artery disease. The case was reviewed and discussed with the referring physician and patient. The referring physician will determine the future therapy and follow-up. I was present during the entire procedure and personally dictated or confirmed the above report. Narrative 03/16/2025 12:37 PM CDT Images from the original result were not included. Cardiovascular Procedure Center [facility] [employer] [facility] [address] [place] [address] LEFT HEART CATHETERIZATION REPORT Patient: Calvin Jones : 1955 MR number: [id number] Date of Service: 03/16/2025 Supervisor Slitting And Shipping: Quirino Lara MD Referring physician: Viraj Mathew MD INDICATION: dyspnea on exertion PATIENT CLINICAL PROFILE: Calvin Jones is a 69 y.o. male with a history of coronary artery disease with prior PCI has been having some dyspnea on exertion. He underwent a stress test which was negative for ischemia but given persistent symptoms, he presents today for coronary angiography and possible PCI. PROCEDURE: The risks, benefits and alternatives of the procedures and moderate sedation were explained to the patient and informed consent was obtained. The patient was brought to the lab support tech and placed on the table. RIGHT radial site and Bilateral groins were prepped and draped in the usual sterile fashion. Ultrasound guidance was used to obtain access. I provided direct [id number] moderate conscious sedation which administered by independent trained nurse using fentanyl Versed for 40 minutes. The RIGHT radial artery site was infiltrated with 1% lidocaine. The vessel was accessed using a micropuncture kit and the modified Seldinger technique with a [place] needle, a wire was threaded into the vessel, and a 5/6 Fr Sheath was advanced over the wire into the vessel. Heparin was given once catheter was placed in the ascending aorta. Left coronary artery angiogram was performed using a 5 Fr Damian catheter. Right coronary artery angiogram was performed using a 5 Fr Damian catheter. Left ventricular hemodynamics were measured using Pigtail catheter, no left ventriculogram was done. The SYNTAX score was low (<22). At the end of the procedure, the right radial artery sheath was removed with TR band for hemostasis. Patient was transferred to the holding area in stable condition. RESULTS: Hemodynamics: Systemic aortic blood pressure was 116/66. Left ventricular blood pressure was 118/15. There was no gradient on pull back across the aortic valve Coronary Arteriography: Left main coronary: LM coronary artery is patent distal LM has a 30-40% narrowing which is unchanged from prior gives rise to circumflex and LAD branches Left anterior descending: Lad is a moderate-sized vessel. Gives rise to a high diagonal branch which has a diffuse 50-60% narrowing in the proximal portion just unchanged from prior. The 2nd diagonal is stented without significant InStent restenosis and RADHA 3 flow. The mid to apical LAD has mild ISR throughout the mid segment. Left circumflex: Circumflex is a small vessel gives rise to obtuse marginal branch which has mild luminal irregularities rest of the circumflex has a small vessel with mild nonobstructive disease. Right coronary artery: Right dominant system. RCA is a moderate-sized vessel that is patent with mild disease proximally there is mild ISR in the mid segment the distal vessel has a PDA and PLV branches which are without significant disease. The PLV is a large vessel which is relatively disease-free. COMPLICATIONS: None. DIAGNOSTIC us Viraj Mathew MD CV CARDIAC CATH PROCEDURES Fi nal Result * (ABNORMAL) POCT Activated clotting time, low range (03/16/2025 11:24 AM CDT) [facility] ACT 221(H) 123 - 168 sec POC Performer [id number] [facility] POC Device Number [id number] [facility] Blood 03/16/2025 11:2 4 AM CDT 03/16/2025 11:24 AM CDT Quirino Lara MD LAB POCT ORDERABLES - DEVICE Final Result [facility] Department [place] [address] * (ABNORMAL) CBC without differential (03/16/2025 11:08 AM CDT) [facility] WBC 7.84 3.80 - 9.90 K/cumm Hgb 13.8 13.0 - 17.5 g/dL [facility] Hct 40.8 38.9 - 50.3 % [facility] Plt 215 150 - 400 K/cumm [facility] MPV 10.2 9.1 - 12.3 fL [facility] RBC 4.51 4.30 - 5.80 M/cumm [facility] MCV 90.5 81.3 - 96.4 fL [facility] MCH 30.6 27.1 - 33.3 pg [facility] MCHC 33.8 32.3 - 35.7 g/dL [facility] RDW CV 15.9(H) 11.1 - 14.9 % [facility] RDW SD 50.5(H) 35.7 - 48.1 fL [facility] NRBC abs 0.00 0.00 - 0.01 K/cumm [facility] Blood 03/16/2025 11:0 8 AM CDT 03/16/2025 11:32 AM CDT Narrative [facility] - 03/16/2025 11:48 AM CDT To be drawn after hydration bolus complete us Quirino Lara MD LAB BLOOD ORDERABLES Final Result [facility] [address] [facility] Department [place] [address] * eGFR (03/16/2025 8:40 AM CDT) eGFR >90 >=60 mL/min/1. 73 m2 Comment: Interpretive Data Reference Interval Normal >/= 90 mL/min/1.73m2 Mildly decreased* 60 - 89 mL/min/1.73m2 Mildly to moderately decreased 45 - 59 mL/min/1.73m2 Moderately to severely decreased 30 - 44 mL/min/1.73m2 Severely decreased 15 - 29 mL/min/1.73m2 Kidney Failure < 15 mL/min/1.73m2 *Relative to young adult level Estimated glomerular filtration rate is determined by the 2020 CKD-EPI equation recommended by the National Kidney Foundation (A Unifying Approach to GFR Estimation: Recommendations of the NKF-ASK Task Force on Reassessing the Inclusion of Race in Diagnosing Kidney Disease, JASN 2020). The CKD-EPI equation should not be used for patients with unstable renal function and has not been validated in children and those over 70. Current interpretive data was last reviewed 2021. Blood 03/16/2025 8:40 AM CDT 03/16/2025 8:42 AM CDT Quirino Lara MD LAB BLOOD ORDERABLES Final Result Performing Organization Address City/[facility]/ZIP Co de Phone Number [facility] Department [place] [address] * (ABNORMAL) CBC without differential (03/16/2025 8:40 AM CDT) [facility] WBC 6.96 3.80 - 9.90 K/cumm Hgb 14.3 13.0 - 17.5 g/dL [facility] Hct 42.0 38.9 - 50.3 % [facility] Plt 226 150 - 400 K/cumm [facility] MPV 10.4 9.1 - 12.3 fL [facility] RBC 4.69 4.30 - 5.80 M/cumm [facility] MCV 89.6 81.3 - 96.4 fL [facility] MCH 30.5 27.1 - 33.3 pg [facility] MCHC 34.0 32.3 - 35.7 g/dL [facility] RDW CV 15.9(H) 11.1 - 14.9 % [facility] RDW SD 49.9(H) 35.7 - 48.1 fL [facility] NRBC abs 0.00 0.00 - 0.01 K/cumm [facility] Blood 03/16/2025 8:40 AM CDT 03/16/2025 8:43 AM CDT Quirino Lara MD LAB BLOOD ORDERABLES Final Result [facility] Department [place] [address] * (ABNORMAL) Basic metabolic panel (03/16/2025 8:40 AM CDT) Pathologist [facility] Sodium 141 135 - 145 mmol/L Potassium, pl 3.7 3.3 - 4.9 mmol/L [facility] Chloride 107 97 - 110 mmol/L [facility] CO2 25 22 - 32 mmol/L [facility] Anion gap 9 2 - 15 mmol/L [facility] BUN 9 6 - 25 mg/dL [facility] Creatinine 0.74(L) 0.80 - 1.30 mg/dL [facility] Glucose 101 70 - 199 mg/dL [facility] Comment: Interpretive Data Fasting glucose >/= 126 mg/dl is diagnostic for diabetes. Fasting is defined as no caloric intake for at least 8 hours. Fasting glucose between 100 mg/dl to 125 mg/dl is diagnostic of prediabetes. In a patient with classic symptoms of hyperglycemia or hyperglycemic crisis, a random glucose >/= 200 mg/dl is diagnostic for diabetes. In the absence of unequivocal hyperglycemia, results should be confirmed by repeat testing. The classification and Diagnosis of Diabetes Diabetes Care 2021; 46: S19-S40. Current interpretive data was last revised 2022. Calcium 8.8 8.5 - 10.3 mg/dL [facility] Blood 03/16/2025 8:40 AM CDT 03/16/2025 8:42 AM CDT us Quirino Lara MD LAB BLOOD ORDERABLES Final Result [facility] [place] [address] * ECG 12 lead (03/16/2025 7:46 AM CDT) Ventricular Rate EKG/Min 86 BPM [facility] Atrial Rate 86 BPM [facility] OK-Interval (MSEC) 170 ms [facility] QRS-Interval (MSEC) 88 ms [facility] QT-Interval (MSEC) 378 ms [facility] QTc 452 ms [facility] P [place] 38 degrees [facility] R [place] -46 degrees [facility] T [place] 45 degrees [facility] Diagnosis Normal sinus rhythm Left axis deviation Pulmonary disease pattern Abnormal ECG When compared with ECG of 10-FEB-2025 07:53, no significant change Confirmed by MOUNA FITZGERALD M.D ([id number]) on 03/16/2025 1:24:32 PM [facility] 03/16/2025 7:46 AM CDT 03/16/2025 1:24 PM CDT Quirino Lara MD ECG ORDERABLES Lucila l Result Performing Organization Address City/[facility] Co de Phone Number [facility] * PSA screen (04/16/2023 9:40 AM CDT) PSA-Total 0.50 <=5.40 ng/mL [facility] Comment: Interpretive Data AGE SEX REFERENCE INTERVAL 0 minutes-150 years Female None 0 minutes-49 years Male None 50-59 years Male 0-3.90 60-69 years Male 0-5.40 70-79 years Male 0-6.20 80-150 years Male 0-6.20 The Maria Esther PSA Total assay procedure was used. Results from different manufacturers or methods may not be comparable. Serial testing should be performed using the same method. Current interpretive data last revised 22. Blood 04/16/2023 9:40 AM CDT 04/16/2023 9:47 AM CDT Compa Paniagua NP LAB BLOOD ORDERABLES F inal Result Performing Organization Address City/[facility] de Phone Number 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 There is no laboratory evidence of HCV infection. In most cases, no further action is required. However, if recent HCV exposure is suspected, a test for HCV RNA (test code 66353) is suggested. For additional information please refer to http://education.BitWall/faq/GMJ23s6 (This link is being provided for informational/ educational purposes only.) Blood specimen (specimen) 11/16/2021 11:36 AM DROP HAMMER OPERATOR HELPER 11/16/2021 11:36 AM DROP HAMMER OPERATOR HELPER Elle PARR LAB MICROBIOLOGY - NERAL ORDERABLES Final Result [facility] [address] [place] [address] * COLONOSCOPY REPORT (07/10/2017) Anatomical Region Laterality Modality Other us Provider Scanning GI PROCEDURE ORDERABLES Final Result from Last 3 Months or Most Recently Relevant to Health Maintenance Insurance MEDICARE [facility] MEDICARE [facility] MEDICARE [facility] MEDICARE [facility] Advance Directives For more information, please contact: [phone] * Full Code (Latest Code Status on File) Date Activated Date Inactivated Comments 03/16/2025 12:03 PM 03/16/2025 8:00 PM * Full Code Date Activated Date Inactivated Comments 07/20/2021 3:08 PM 07/20/2021 10:32 PM Care Teams Director Of People Relationship Specialty Start Date End Date Cesar Ayala MD [address] [facility] [address] [place] [address] PCP - General 11/12/16 Zhang Rock MD [address] [place] [address] Consulting Physician Rheumatology 10/30/21
--- OUTSIDE RECORDS SUMMARY | 2025-06-02 00:25 | XMS_ITS | Encounter Summary ---
Author Organization [facility] Address [address] [place] [address] Care Team Providers Care Physical Trainer Name Role Phone Cesar Ayala MD Primary Care Provider [phone] Nell Ge MD Unavailable Encounter Details Date Type Department Care Team (Late st Contact Info) Description 04/10/2018 Ophth Exam [facility] [address] [place] [address] Janeen Gonzalez MD [address] [place] [address] Social History Tobacco Use Types Packs/Day Years Used Date Smoking Tobacco: Never Smokeless Tobacco: Never Alcohol Use Standard Drinks/Week Comments Yes 0 (1 standard drink = 0.6 oz pur e alcohol) occasionally Sex and Gender Information Value Date Recorded Sex Assigned at Not on file 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 Answer Date of Assessment Author No 04/10/2018 3:10 PM Mony Barnes RN * Is person blind or have serious difficulty seeing? Answer Date of Assessment Author No 04/10/2018 3:10 PM Mony Barnes RN * Does person have serious difficulty walking/climbing stairs? Answer Date of Assessment Author No 04/10/2018 3:10 PM Mony Barnes RN * Does person have difficulty dressing/bathing? Answer Date of Assessment Author No 04/10/2018 3:10 PM CDT Mony Gibson RN * Does person have difficulty doing errands alone? Answer Date of Assessment Author No 04/10/2018 3:10 PM CDT Mony Gibson RN documented as of this encounter Mental Status * Does person have difficulty concentrating/remembering/making decisions? Answer Entry Date Author No 04/10/2018 3:10 PM CDT Mony Gibson RN documented in this encounter Plan of Treatment Not on file documented as of this encounter Visit Diagnoses Not on filedocumented in this encounter Care Teams Physical Trainer Relationship Specialty Start Date End Date Cesar Ayala MD [address] [facility] [address] [place] [address] PCP - General Internal Medicine 04/09/18 Nell Ge MD [address] [place] [address] Ophthalmology 04/26/19 documented as of this encounter
--- OUTSIDE RECORDS SUMMARY | 2025-06-02 00:25 | XMS_ITS | Encounter Summary ---
Author Organization [facility] Address [address] [place] [address] Phone Care Team Providers Care Surgeon Partner Name Role Phone Cesar Ayala MD Primary Care Provider [phone] Zhang Rock MD Unavailable [phone] Encounter Details Date Type Department Care Team (Late st Contact Info) Description 05/02/2025 Telephone [facility] Medicine Cardiology [address] [place] [address] [place] [address] Viraj Mathew MD [address] [facility] [address] [place] [address] Social History Tobacco Use Types Packs/Day Years [...] on file 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 * Telephone Encounter - Laci Gomez - 05/02/2025 11:56 AM CDT PT CALLED TO REQUEST CLEARANCE LETTER BE REFAXED IT WAS NEVER RECEIVED documented in this encounter Plan of Treatment Not on file documented as of this encounter Visit Diagnoses Not on filedocumented in this encounter Care Teams Surgeon Partner Relationship Specialty Start Date End Date Cesar Ayala MD [address] [facility] [address] [place] [address] PCP - General 11/12/16 Zhang Rock MD [address] [place] [address] Consulting Physician Rheumatology 10/30/21 documented as of this encounter
--- OUTSIDE RECORDS SUMMARY | 2025-06-02 00:26 | XMS_ITS | Clinical Summary ---
Author Organization [facility] Address [address] [place] [address] Care Team Providers Care Semiconductor Packages Leak Tester Name Role Phone Cesar Ayala MD Primary Care Provider [phone] Nell Ge MD Unavailable Source Comments [facility],non-owned Affiliates and Associated Physician Practices is amultiple site organization consisting of ambulatory clinics and hospital sitesin [place], [place], [place] and [place]. This disclosure is being madepursuant to the Care Everywhere program and may not contain all information available regarding this patient. Last updated 18.[facility] Allergies Active Allergy Reactions Criticality Noted Date Comments Atorvastatin Unknown Ibuprofen Other,GI Discomfort Low 11/23/2012 Stomach cramps Naproxen Unknown 08/22/2017 Rosuvastatin Unknown Medications * Be aware that medications may not be up to date on this document. Alwaysverify current medications with the patient. pitavastatin (LIVALO) 2 MG tablet Take 2 mg by mouth once daily Active metoprolol succinate XL 24hr (TOPROL XL) 100 MG tablet Take 100 mg by mouth once daily Active Cholecalciferol (VITAMIN D3) 400 UNITS tablet Take 5,000 Units by mouth once daily Active cyanocobalamin (VITAMIN B-12) 1000 MCG tablet Take 1,000 mcg by mouth once daily Active Krill Oil 300 MG Active aspirin (ASPIRIN) 81 MG chew tablet Take 1 tablet by mouth once daily 04/20/2018 Active traMADol (ULTRAM) 50 MG tablet Take 1 tablet by mouth every 6 hours as needed Active ezetimibe (ZETIA) 10 MG tablet Take 10 mg by mouth once daily 10/26/2018 Active Coenzyme Q-10 200 MGIndications:4 00 mg Take 1 tablet by mouth once daily Reasons: 400 mg 10/26/2018 Active prednisoLONE acetate (PRED FORTE) 1 % ophthalmic suspension Instill 1 drop into left eye 4 times daily 1 bottles 1 01/15/2019 Active losartan (COZAAR) 25 MG tablet Take 25 mg by mouth once daily Active Active Problems Problem Noted Date Diagnosed Date Left retinal detachment 10/27/2018 Benign hypertension 07/24/2018 Gastroesophageal reflux disease 07/24/2018 Glaucoma 07/24/2018 Low back pain 07/24/2018 Osteoarthrosis 07/24/2018 Polyp of colon 07/24/2018 Primary erectile dysfunction 07/24/2018 Vitamin D deficiency 07/24/2018 Hyphema of left eye 05/26/2018 Dislocation of lens 04/10/2018 Left orbit fracture 04/09/2018 Ruptured globe of left eye 04/09/2018 Maxillary sinus fracture 04/09/2018 Hyphema of left eye 04/09/2018 Mixed hyperlipidemia 02/22/2018 Coronary arteriosclerosis 02/16/2016 Other [place] [facility] (current) drug therapy 5 Pain of right hand 08/04/2014 Pain of left hand 08/04/2014 Dorsalgia 08/04/2014 Immunizations Immunization Administration Dates Next Due INFLUENZA VACCINE, TRIV. (AF LURIA, FLUZONE TRIVALENT; 6MO+) (IIV3) 10/18/2017 FLU VACCINE QUAD IIV4 SPLIT 0.25 ML IM 6 PNEUMOCOCCAL PPSV23 07/06/2015 TD VACCINE 12/22/2015 TDAP (7yrs+) 11/20/2018,04/09/2018 Family History Medical History Relation Name Comments Glaucoma Mother Diabetes - Type 2 Neg Hx Macular Degeneration Neg Hx Relation Name Status Comments Father Maternal Grandfather Maternal Grandmother Mother Paternal Grandfather Paternal Grandmother Sister Alive Social History Tobacco Use Types Packs/Day Years Used Date Smoking Tobacco: Never Smokeless Tobacco: Never Alcohol Use Standard Drinks/Week Comments Yes 0 (1 standard drink = 0.6 oz pur e alcohol) occasionally Sex and Gender Information Value Date Recorded Sex Assigned at Not on file Legal Sex Male 6:03 PM RABBLE FURNACE TENDER Gender Identity Not on file Sexual Orientation Not on file Last Filed Vital Signs Vital Sign Reading Time Taken Comments Blood Pressure 121/75 10/27/2018 2:55 PM RABBLE FURNACE TENDER Pulse 88 10/27/2018 2:55 PM RABBLE FURNACE TENDER Temperature 36.7 C (98 F) 10/27/2018 2:45 PM RABBLE FURNACE TENDER Respiratory Rate 11 10/27/2018 2:55 PM RABBLE FURNACE TENDER Oxygen Saturation 93% 10/27/2018 2:35 PM RABBLE FURNACE TENDER Inhaled Oxygen Concentration 21% 10/27/2018 7 :48 AM RABBLE FURNACE TENDER Weight 113.9 kg (251 lb) 12/26/2020 11:47 AM CDT Height 182.9 cm (6') 12/02/2019 3:21 PM CDT Body Mass Index 34.04 12/02/2019 3:21 PM CDT Plan of Treatment Health Maintenance Due Date Last Done Comments COLOGUARD (AGES 45-75) - COLON CA SCREENING 1955 COLON MONITORING 1955 COLONOSCOPY - COLON CA SCREENING 1955 CT COLONOGRAPHY - COLON CA SCREENING 1955 Colorectal Cancer Screening 1955 FIT - COLON CA SCREENING 1955 FLEX SIG - COLON CA SCREENING 1955 MEDICARE AWV 12 MONTHS 1955 ZOSTER VACCINE (1 of 2) 2005 PNEUMOCOCCAL VACCINE 50+ (2 of 2 - PCV) 07/06/2016 07/06/2015 DEPRESSION SCREENING 09/22/2024 COVID-19 VACCINE ( season) 2025 11/20/2020, 10/30/2020 INFLUENZA VACCINE (#1) 2025 0, 07/28/2019, 08/12/2018, Additional history exists DTAP/TDAP/TD VACCINES (4 - Td or Tdap) 11/20/2028 11/20/2018, 04/09/2018, 12/22/2015 Respiratory Syncytial Virus (RSV) Vaccine Pt: or over 60 yrs (1 - 1-dose 75+ series) 2030 HEPATITIS C SCREENING Completed 11/23/2012 HEPATITIS B VACCINE Aged Out No longe r eligible based on patient's age to complete this topic HIB VACCINE Aged Out No longer eligi ble based on patient's age to complete this topic HPV VACCINE Aged Out No longer eligi ble based on patient's age to complete this topic MENINGOCOCCAL (Group B) VACCINE SHARED DECISION-MAKING Aged Out No longer eligible based on patient's age to complete this topic MENINGOCOCCAL GROUPS A/C/Y/W VACCINE Aged Out No longer eligible based on patient's age to complete this topic Procedures Procedure Name Priority Date/Time Associated Diagnosis Comments HEPATITIS C ANTIBODY Routine 11/23/2012 10:21 AM RABBLE FURNACE TENDER from Last 3 Months or Most Recently Relevant to Health Maintenance Results * HEPATITIS C ANTIBODY (11/23/2012 10:21 AM RABBLE FURNACE TENDER) Hepatitis C Antibody NONREACTIVE NONREACTIVE [facility] Comment: Anti-HCV screen indicates no serologic evidence of past or current infection with Hepatitis C Virus. Patients with unexplained liver disease who are immunocompromised or suspected of having acute Hepatitis C infection may benefit from Nucleic Acid Test (YUAN) for Hepatitis C Viral RNA to confirm Hepatitis C status. 11/23/2012 10:2 1 AM RABBLE FURNACE TENDER 11/23/2012 11:26 AM RABBLE FURNACE TENDER Narrative [facility] - 11/23/2012 1:37 PM RABBLE FURNACE TENDER Copy to patient Copy to PCP, [facility], fax:[phone] us [facility] Trevor [facility] - CHEMISTRY ORDERABLES Fi nal Result Performing Organization Address [facility]/State/ZIP Co de Phone Number [address] [phone] from Last 3 Months or Most Recently Relevant to Health Maintenance Insurance MEDICARE MEDICARE [facility] Advance Directives * Full Code (Latest Code Status on File) Date Activated Date Inactivated Comments 07/07/2018 1:15 PM 07/07/2018 3:13 PM * Full Code Date Activated Date Inactivated Comments 07/06/2018 8:42 AM 07/07/2018 1:15 PM * Full Code Date Activated Date Inactivated Comments 04/28/2018 1:51 PM 04/28/2018 3:38 PM * Full Code Date Activated Date Inactivated Comments 04/27/2018 9:03 PM 04/28/2018 1:51 PM * Full Code Date Activated Date Inactivated Comments 04/09/2018 3:24 PM 04/10/2018 5:34 PM Care Teams Semiconductor Packages Leak Tester Relationship Specialty Start Date End Date Cesar Ayala MD [address] [facility] [facility] [address] [place] [address] PCP - General Internal Medicine 04/09/18 Nell Ge MD [address] [facility] [place] [address] Ophthalmology 04/26/19
--- OUTSIDE RECORDS SUMMARY | 2025-06-02 00:26 | XMS_ITS | Encounter Summary ---
Author Organization [facility] Care Team Providers Care Core Paster Name Role Phone Cesar Ayala MD Primary Care Provider [phone] Jamison WELLS MD, Jin Ritchie Unavailable [phone] Zhang Rock MD Unavailable [phone] Encounter Details Date Type Department Care Team (Latest Contact Info) Description 04/09/2016 Orders Only [facility] CLINCON[facility] ProviderMarilyn MD [address] [place] [address] Social History Tobacco Use Types Packs/Day Years Used Date Smoking Tobacco: Never Assessed Sex and Gender Information Value Date Recorded Sex Assigned at Not on file 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 Historical Provider [facility] Final Result * CARDIOLOGY REPORT (04/09/2016 12:00 AM CDT) Anatomical Region Laterality Modality Other Narrative 04/09/2016 12:00 AM CDT Ordered by an unspecified provider. us Historical Provider [facility] Final Result documented in this encounter Visit Diagnoses Not on filedocumented in this encounter Care Teams Core Paster Relationship Specialty Start Date End Date Cesar Ayala MD [address] [facility] [address] [place] [address] PCP - General 11/12/16 Jin Swift III, MD [address] [place] [address] Consulting Physician Rheumatology 10/30/21 10/30/21 Zhang Rock MD [address] [place] [address] Consulting Physician Rheumatology 10/30/21 documented as of this encounter
--- OUTSIDE RECORDS SUMMARY | 2025-06-02 00:26 | XMS_ITS | Encounter Summary ---
Author Organization [facility] [facility] Address [address] [place] [address] Care Team Providers Care Manager Payer Name Role Phone Cesar Ayala MD Primary Care Provider [phone] Encounter Details Date Type Department Care Team (Late st Contact Info) Description 07/02/2005 Outpatient Historical [facility] 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
--- OUTSIDE RECORDS SUMMARY | 2025-06-02 00:26 | XMS_ITS | Encounter Summary ---
Author Organization [facility] Address [address] [place] [address] Care Team Providers Care Pantry Goods Worker Name Role Phone Cesar Ayala MD Primary Care Provider [phone] Encounter Details Date Type Department Care Team (Late st Contact Info) Description 05/07/2006 Outpatient Historical [facility] 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
--- NOTE | 2025-06-02 11:17 | WPDANESEPPF ---
Anes - Initial Pre Proc Eval Procedure: Operation Date: 06/02/25 12:00 Proposed Procedures p Kanika Osteotomy Second Metatarsal, Repair Plantar Plates Second Metatarsal Phalangeal Joint, First Metatarsal Phalangeal Joint Right Foot Cheilectomy, Possible Hammer Toe Repair Right Foot - Larissa Mccullough DPM Date/Time: 06/02/25 11:17 Surgeon: Larissa Mccullough DPM Pre Op Diagnosis: Hammertoes right foot Patient Data Age: 69 Gender: M Height: 1.83 m Weight: 113.4 kg Allergies Allergy/AdvReac Type Severity Reaction Status Date / Time ibuprofen AdvReac Intermediate stomach Verified 06/02/25 11:43 pain/cramps Home Medications ?Medication ?Instructions ?Recorded ?Confirmed ?Type amlodipine 10 mg tablet 10 mg PO DAILY 05/26/25 06/02/25 History aspirin 81 mg chewable tablet 81 mg PO DAILY 05/26/25 06/02/25 History (Chris Chewable Low Dose Aspirin) cyclobenzaprine 5 mg tablet 5 mg PO HS PRN muscle spasm 05/26/25 05/26/25 History irbesartan 300 mg tablet 300 mg PO .NIGHt 05/26/25 05/26/25 History latanoprost 0.005 % eye drops 1 drp RIGHT EYE QPM 05/26/25 05/26/25 History leflunomide 20 mg tablet 20 mg PO DAILY 05/26/25 05/26/25 History methotrexate sodium 2.5 mg tablet 2.5 mg PO WEEKLY 05/26/25 05/26/25 History metoprolol succinate 100 mg 100 mg PO DAILY 05/26/25 06/02/25 History tablet,extended release 24 hr pantoprazole 20 mg tablet,delayed 20 mg PO .am 05/26/25 05/26/25 History release tramadol 50 mg tablet 50 mg PO HS PRN pain 05/26/25 05/26/25 History Patient hx anesthesia problems: none Family hx anesthesia problems: none Results Review: All pre-operative results and documents have been reviewed as part of the pre-operative evaluation. [facility] Past Medical History Medical History (Updated 06/02/25 @ 12:18 by Larissa Mccullough DPM) Rheumatoid arthritis CAD (coronary artery disease) Hyperlipidemia Hypertension Surgical History Surgical History (Updated 06/01/25 @ 15:34 by Jose Elias Mortensen DO) History of coronary artery stent placement x8 Social History Social History Smoking status: Never smoker Second hand tobacco smoke exposure: No Alcohol intake: current Alcohol use details: 1 per 2 mos Substance use: never Living arrangements: with family Additional living arrangements comments: Spiritual care concerns: No Anes - Eval Final PreProcedure Day of Procedure 06/02/25 11:17 Patient weight: obese Heart: regular rate and rhythm Lungs: clear to auscultation Airway: Mallampati scale class II Neurological: alert and oriented Last oral intake: >/= 8 hours ASA classification: III Emergent: no Anesthetic plan: proceed Anesthesia type and monitoring: general LMA and standard monitoring Results Review: All pre-operative results and documents have been reviewed as part of the pre-operative evaluation. Informed Consent: The patient's anesthetic plan and its attendant risks and benefits were discussed with the patient/family/POA. Questions were solicited and answers provided to the satisfaction of the patient/family/POA.
--- NOTE | 2025-06-02 12:16 | PM.IMHP ---
H&P: HPI History of Present Illness Date/Time: 06/02/25 12:16 Chief Complaint: Right foot pain to 2nd toe going up foot and big toe joint Review of Systems Review of Systems: All systems reviewed & are unremarkable except as noted in HPI and below [facility] Past Medical History Medical History (Updated 06/02/25 @ 12:18 by Larissa Mccullough DPM) Rheumatoid arthritis CAD (coronary artery disease) Hyperlipidemia Hypertension Surgical History Surgical History (Updated 06/01/25 @ 15:34 by Jose Elias Mortensen DO) History of coronary artery stent placement x8 Social History Social History Smoking status: Never smoker Second hand tobacco smoke exposure: No Alcohol intake: current Alcohol use details: 1 per 2 mos Substance use: never Living arrangements: with family Additional living arrangements comments: Spiritual care concerns: No Meds Home Medications and Allergies Home Medications ?Medication ?Instructions ?Recorded ?Confirmed ?Type amlodipine 10 mg tablet 10 mg PO DAILY 05/26/25 06/02/25 History aspirin 81 mg chewable tablet 81 mg PO DAILY 05/26/25 06/02/25 History (Chris Chewable Low Dose Aspirin) cyclobenzaprine 5 mg tablet 5 mg PO HS PRN muscle spasm 05/26/25 05/26/25 History irbesartan 300 mg tablet 300 mg PO .NIGHt 05/26/25 05/26/25 History latanoprost 0.005 % eye drops 1 drp RIGHT EYE QPM 05/26/25 05/26/25 History leflunomide 20 mg tablet 20 mg PO DAILY 05/26/25 05/26/25 History methotrexate sodium 2.5 mg tablet 2.5 mg PO WEEKLY 05/26/25 05/26/25 History metoprolol succinate 100 mg 100 mg PO DAILY 05/26/25 06/02/25 History tablet,extended release 24 hr pantoprazole 20 mg tablet,delayed 20 mg PO .am 05/26/25 05/26/25 History release tramadol 50 mg tablet 50 mg PO HS PRN pain 05/26/25 05/26/25 History Allergies Allergy/AdvReac Type Severity Reaction Status Date / Time ibuprofen AdvReac Intermediate stomach Verified 06/02/25 11:43 pain/cramps Vital Signs Vital Signs - 24 hr 06/02/25 11:45 Temperature 36.6 C Pulse Rate 87 Respiratory Rate 16 Blood Pressure 129/86 Pulse Oximetry 96 Oxygen Delivery Room Air Exam Extrem: General: normal exam except as noted Other: Pain on palpation to right 2nd MPJ, metatarsal, and 1st MPJ. 2nd digit is mildly dorsally dislocated off 2nd MPJ. Pedal pulses palpable 2/4 , bilateral. Capillary refill time immediate to digits, bilateral Assessment and Plan Assessment and plan (1) Foot pain, right: Code(s): M79.671 - Pain in right foot Status: Acute (2) Hallux rigidus of right foot: Code(s): M20.21 - Hallux rigidus, right foot Status: Acute (3) Rupture of tendon of right foot region: Code(s): S96.911A - Strain of unspecified muscle and tendon at ankle and foot level, right foot, initial encounter Status: Acute (4) Hammer toe of right foot: Code(s): M20.41 - Other hammer toe(s) (acquired), right foot Status: Acute Plan Right foot 1st MPJ cheilectomy Right foot 2nd metatarsal patrick osteotomy Right foot 2nd MPJ plantar plate repair Right foot 2nd digit hammer toe repair
--- NOTE | 2025-06-02 12:19 | WPDHPUPDATE1 ---
History and Physical Update Update Date/Time: 06/02/25 12:19 History and Physical has been reviewed, including an updated exam of the patient. There are NO changes in the patient's condition. Risks, benefits, and alternatives have been discussed and questions answered. Patient agrees to proceed with procedure.
[2025-06-02] MEDS: LIDOCAINE 1% LOCAL INJ 20 ML VIAL 9 ML INFILTRATE (12:28)
[2025-06-02] MEDS: ceFAZolin 2 GM in SODIUM CHLORIDE 0.9% IV 50 ML 100 ML IVPB (12:28)
[2025-06-02] MEDS: LACTATED RINGERS 1,000 ML 30 ML IV CONT ×2 (14:08)
--- NOTE | 2025-06-02 14:16 | P.OP_ITS ---
Procedure Note - Detailed Date of Procedure 06/02/25 Pre-op Diagnosis Hammertoes right foot Capsulitis 2nd metatarsophalangeal joint, right foot Hallux limitus, right foot Post-op Diagnosis Same Procedure Performed 1) First metatarsophalangeal joint cheilectomy, right foot 2) 2nd metatarsal kanika osteotomy, right foot 3) Plantar plate repair 2nd metatarsophalangeal joint, right foot 4) Proximal interphalangeal joint arthroplasty, right foot Surgeon Larissa Mccullough DPM Anesthesia MAC Description of Procedure Patient is a 69 year old male with the above diagnoses. The patient has exhausted conservative treatment at this time and now requests surgical intervention. The patient signed the consent after careful explanation of risks, benefits, complications, and alternatives to surgical procedure. No guarantees were given nor implied. NPO status was confirmed prior to taking patient to OR. The patient was brought to the operating room and placed on the operating room table in the supine position. The patient received a total of 18 cc of a 1:1 mix of 1% lidocaine plain and 0.5% marcaine plain in a local block fashion to the right foot. Once local anesthesia was achieved, the right foot was then prepped and draped in the usual sterile manner and the procedure began. A well padded ankle tourniquet was applied and set to 250 mmHg Procedure #1: Right foot 1st metatarsophalangeal joint (MPJ) cheilectomy Attention was directed to the dorsal aspect of the 1st metatarsal head where a longitudinal incision was made medial & parallel to the tendon of the extensor hallucis longus and involved the counter of the deformity. The incision was deepened through the subcutaneous tissue using sharp and blunt dissection. Care was taken to identify and retract all vital neurovascular structures. All bleeders were cauterized and ligated as necessary. At this time, a linear type capsulotomy was performed over the dorsal aspect of the 1st MPJ. The periosteal and capsular structures were then carefully dissected free of their osseous attachments and reflected medially and laterally thus exposing the head of hte first metatarsal into the operative site. It is noted that there is hypertrophic bone to the dorsal, medial, and lateral aspects of the 1st MPJ with about 25% denuded cartilage at the head of the 1st metatarsal. Next, utilizing an oscillating bone saw, the dorsomedial prominences were resected and passed from the operative field from the head of the 1st metatarsal & base of the proximal phalanx of the hallux. All rough edges were then smoothed down with a power aniyah and bone rasp. Correction of the deformity was assessed at this time and was noted to be excellent, with improved 1st MPJ range of motion prior to procedure. Procedure #2: Kanika osteotomy 2nd metatarsal, right foot Attention was directed to the dorsum of the right foot where a linear incision was made overlying the 2nd metatarsal phalangeal joint. The incision was deepened through subcutaneous tissue with care being taken to identify and retract all vital neurovascular structures. All bleeders were cauterized and ligated as necessary. At this time, a linear capsulotomy was made to the 2nd MPJ and ligamentous structures were dissected off the base of the proximal phalanx. At this time, the plantar plate was inspected and noted to have a small tear to the lateral aspect of the plantar plate. The head of the metatarsal had severe osteophytes to its entirety and the articular cartilage was damaged about 50%. The osteophytes were removed using a bone ronjour. Next, using a sagittal saw, an osteotomy was made just proximal to the articular cartilage of the 2nd metatarsal head and angled distal dorsal to proximal plantar through and through. The head of the metatarsal was noted to fall immediately into corrected position, the osteotomy was then fixated with a 2.7 mm 14 mm snap-off screw. Under fluorscopy, correction of the deformity & proper hardware placement were noted to be excellent. Procedure #3: Plantar plate repair 2nd MPJ, right foot The tear in the plantar plate was inspected and the devitalized portions of the plantar plate was resected using a #15 blade. The plantar plate tear was re- approximated using #3-0 vicryl. The 2nd digit was then noted to sit in a more rectus position on the 2nd metatarsal head. Procedure #4: Proximal interphalangeal joint (PIPJ) arthroplasty, right 2nd digit The incision from the previous procedure #2 and #3 was extended to the middle phalanx of the 2nd digit. A semi-rigid hammer toe deformity was noted at the PIPJ. The incision was deepened through the subcutaneous tissue using sharp and blunt dissection. Care was taken to identify and retract all vital neurovascular structures. All bleeders were cauterized and ligated as necessary. A transverse tenotomy and capsulotomy were performed to the PIPJ. The head of the proximal phalanx was then freed of its capsular and ligamentous attachments. Next utilizing an oscillating saw, the head of the proximal phalanx was resected and passed from the operative site. Next, while simulating weight bearing, the hammertoe deformity correction was noted to sit in a excellent more rectus position. All the incisions were irrigated was normal saline. The capsular structures were re-approximated using 3-0 Vicryl, the subcutaneous tissue was re-approximated using 4-0 Vicryl. The skin was re-approximated using 4-0 Nylon. The ankle tourniquet was released with immediate vascular return to the digits. A post- operative local anesthetic block was given to the right foot of approximately 10 cc of 0.5% marcaine plain. Final fluorscopic radiographs were obtained with noted excellent reduction of deformities and excellent placement of hardware. Post-operative dressings included xeroform, 4x4 gauze, kerlix, and coban. Post-operative condition: The patient tolerated the anesthesia and procedure and proceeded to the recovery with vital sign stables and neurovascular status intact to the right foot. The patient will follow up with me in office as outpatient basis. Implants [id number] 2.7 mm x 14 mm snap off screw Estimated Blood Loss 5 Complications None Condition Stable Disposition Same day
--- NOTE | 2025-06-02 14:20 | PM.OP ---
Procedure Note - Brief Procedure Note - Brief Date of procedure: 06/02/25 Hammertoes right foot Capsulitis 2nd metatarsophalangeal joint, right foot Hallux limitus, right foot Procedure performed: 1) 1st metatarsophalangeal joint cheilectomy, right foot 2) 2nd metatarsal patrick osteotomy, right foot 3) plantar plate repair 2nd metatarsophalangeal joint, right foot 4) 2nd Proximal interphalangeal phalangeal joint arthroplasty, right foot Surgeon: Larissa Mccullough DPM Description of procedure: See Procedure note- detailed Implants: 2.7 mm 14 mm snap-off screw Estimated blood loss (mL): 5 Drains: No Packing: No Complications: None Condition: Stable Disposition: Same day
[2025-06-02] MEDS: oxyCODONE HCL (*CRX) 5 MG TAB IR PO (15:10)
== END 2025-06-02 16:05 | disposition home or self-care (01) ==
PROVIDERS: PCP Internal Medicine; Visit Provider Podiatrist Foot & Ankle Surgery
PROC: (CPT 28750; principal; 2025-06-02 12:00)
DX: M20.21 Hallux rigidus, right foot (principal); S96.911A Strain of unspecified muscle and tendon at ankle and foot level, right foot, initial encounter; M20.41 Other hammer toe(s) (acquired), right foot; E78.5 Hyperlipidemia, unspecified; I10 Essential (primary) hypertension; I25.10 Atherosclerotic heart disease of native coronary artery without angina pectoris; M06.9 Rheumatoid arthritis, unspecified; X58.XXXA Exposure to other specified factors, initial encounter; Z79.82 Long term (current) use of aspirin; Z79.891 Long term (current) use of opiate analgesic; Z95.5 Presence of coronary angioplasty implant and graft
CPT/HCPCS: 28289; 28308; 28285; 73620; 99199; J0690; A9270; J1100; J2003; J2250; J2371; J2405; J2704; J3010; J7120